=== PATIENT | male | born 1955 | race Caucasian/White ===

== ENCOUNTER 2017-09-11 15:52 | Emergency (ER) | payer OTHER ==
[2017-09-11 16:12] VITALS: BP 140/66; PULSE 71; RESP 16; TEMP 97.9; O2SAT 94
--- NOTE | 2017-09-11 16:23 | EDPHY ---
HPI/HX/ROS/PE/MDM Narrative: CHIEF COMPLAINT: Right rib injury HPI: The patient is a 61-year-old male who denies any significant past medical history. He is not on anticoagulants. Last night, the patient slipped on ice in his driveway, landing on his right chest wall. He denies head injury. He denies injury to his arms or legs. He complains of pain in the right lower costal margin, particularly with movement or palpation. He denies abdominal pain. He denies lightheadedness or syncope. REVIEW OF SYSTEMS: Aside from elements discussed in the HPI, a comprehensive 10-point review of systems was reviewed and is negative. PMH: None significant. SOCIAL HISTORY: . Denies alcohol or drug abuse. PHYSICAL EXAM: General:Patient is alert, in no acute distress. ENT:Eyes are normal to inspection. ENT inspection normal. Neck: Normal inspection. Full range of motion. Respiratory:No respiratory distress. Breath sounds normal bilaterally. No external signs of trauma but tenderness to palpation at the right lower costal margin is present. Cardiovascular: Regular rate and rhythm. Strong peripheral pulses. Normal cap refill. Abdomen:The abdomen is nontender to palpation. There are no peritoneal signs. There are normal bowel sounds. No tenderness to deep palpation of the right upper quadrant. Back: Normal to inspection. No tenderness to palpation. Skin: Normal color. No rash. Warm and dry. Extremities: Normal appearance. Full range of motion. Neuro: Oriented x3. Normal motor function. Normal sensory function. ED Course: Chest x-ray reveals single isolated rib fracture at site of pain with no evidence of pneumothorax. Patient will be sent home with pain medicine and that the spirometer as well as strict return precautions. The patient has no abdominal pain or tenderness to suggest hepatic injury. - Data Points Imaging: Discussed imaging studies w/ call center associate Radiologist, I viewed and interpreted images myself General Time Seen by Provider: 09/11/17 16:03 Initial Vital Signs: Initial Vital Signs Temperature (C) 36.6 C 09/11/17 16:01 Heart Rate 71 09/11/17 16:01 Respiratory Rate 16 09/11/17 16:01 Blood Pressure 140/66 H 09/11/17 16:01 O2 Sat (%) 94 09/11/17 16:01 O2 Delivery Mode Room Air Allergies/Adverse Reactions: No Known Allergies Allergy (Verified 09/11/17 16:04) Home Medications: Medication Instructions Recorded Lexapro 10 MG 09/11/17 oxyCODONE/APAP 5/325 [Percocet 1 - 2 tab PO Q6H PRN #20 tab 09/11/17 5/325 (*)] Departure - Departure Disposition: Home, Routine, Self-Care Clinical Impression: Rib fracture Condition: Good Instructions: Rib Fracture (ED) Additional Instructions: Followup with your primary doctor within 72 hours for reevaluation. Use incentive spirometer as directed several times daily. Return to the emergency department for fever, worsening pain, shortness of breath or difficulty breathing, abdominal pain, blood in urine or other concerns. Referrals: Liu Rowe MD [Primary Care Provider] - As per Instructions Prescriptions: oxyCODONE/APAP 5/325 [Percocet 5/325 (*)] 1 - 2 tab PO Q6H PRN #20 tab PRN Reason: Pain, Severe
== END 2017-09-11 16:53 | disposition home or self-care (01) ==
LOC: CED 15:52
DX: S22.31XA Fracture of one rib, right side, initial encounter for closed fracture (principal); W01.0XXA Fall on same level from slipping, tripping and stumbling without subsequent striking against object, initial encounter
CPT/HCPCS: 71101-PO

== ENCOUNTER 2018-02-23 12:34 | Day surgery (SDC) | payer OTHER ==
[2018-02-23] MEDS ORDERED: BENZOCAINE UNIT DOSE SPRAY HURRICAINE MM ONE (12:37)
[2018-02-23] MEDS ORDERED: fentaNYL 100 MCG/2 ML INJ IVP ONE (12:37)
[2018-02-23] MEDS ORDERED: diphenhydrAMINE 25 MG CAP PO ONE (12:37)
[2018-02-23] MEDS ORDERED: NS 1,000 ML IV ONE (12:37)
[2018-02-23] MEDS ORDERED: DIAZEPAM 5 MG TAB PO ONE (12:37)
[2018-02-23] MEDS ORDERED: MIDAZOLAM 2 MG/2 ML VIAL IVP ONE (12:37)
[2018-02-23] MEDS ORDERED: FAMOTIDINE 20 MG TAB PO ONE (12:37)
[2018-02-23] MEDS ORDERED: ASPIRIN EC 325 MG TAB PO ONE (12:37)
--- NOTE | 2018-02-23 12:57 | CPEKG ---
Heart Rate: 85 RR Interval: 706 P-R Interval: 156 QRSD Interval: 104 QT Interval: 340 QTC Interval: 405 P Dysart: 85 QRS Dysart: 78 T Wave Dysart: -66 EKG Severity - ABNORMAL ECG - EKG Impression: SINUS RHYTHM EKG Impression: VENTRICULAR BIGEMINY EKG Impression: NONSPECIFIC REPOL ABNORMALITY, DIFFUSE LEADS Electronically Signed By: Hayden Cazares 02-Mar-2018 16:20:55
[2018-02-23] MEDS ORDERED: MIDAZOLAM 2 MG/2 ML VIAL ONE (13:21)
[2018-02-23] MEDS ORDERED: fentaNYL 100 MCG/2 ML INJ ONE (13:21)
[2018-02-23] MEDS ORDERED: LIDOCAINE 1% 300 MG/30 ML SDV ONE (13:21)
[2018-02-23] MEDS ORDERED: IOPAMIDOL (ISOVUE-370) 150 ML BTL IV ONE (13:22)
[2018-02-23 13:29] LABS: PLATELET COUNT 174 10^3/uL (150-400)
[2018-02-23 13:37] LABS: INR 1.05 (0.83-1.16); PROTIME(PATIENT) 13.9 SEC (12.0-15.0)
[2018-02-23] MEDS ORDERED: ATROPINE SULFATE 1 MG/10 ML SYR ONE ×2 (13:58→16:14)
--- NOTE | 2018-02-23 14:22 | PDHPUP ---
History & Physical Update H&P update statement: This history and physical update is based on an assessment of the patient which was completed after admission or registration (within 24 hours), but prior to the surgery/procedure. H&P update: H&P reviewed & patient examined, no change in patient's condition since H&P completed
--- NOTE | 2018-02-23 14:22 | PDPROPOC ---
Sedation Plan of Care Sedation Plan of Care: vital signs stable, mental status noted, patient educated of risks, benefits, alternatives, patient can tolerate sedation ASA Classification: ASA 2 Planned drugs: fentanyl, midazolam Mallampati Score: Class 2 Mallampati Reference Image: Patient passed 3-3-2 rule?: Yes
[2018-02-23] MEDS ORDERED: ATROPINE SULFATE 1 MG/10 ML SYR IVP PRN (16:51)
[2018-02-23] MEDS ORDERED: ONDANSETRON 4 MG/2 ML VIAL IVP PRN (16:51)
[2018-02-23] MEDS ORDERED: OXYCODONE/APAP 5/325 TAB PO PRN (16:51)
[2018-02-23] MEDS ORDERED: HYDROCODONE/APAP 5/325 TAB PO PRN (16:51)
--- NOTE | 2018-02-23 17:01 | CPIP ---
[f rep st] INVASIVE CARDIAC PROCEDURE DATE OF PROCEDURE: 02/23/2018 PROCEDURE: 1. Coronary angiography. 2. Left ventriculography. 3. Right heart catheterization. INDICATION: 1. Sgrhqniu-wg-knslwi mitral regurgitation. 2. Exercise intolerance. ACCESS: Patient was prepped and draped in sterile fashion. 1% lidocaine was used to anesthetize the right inguinal region. A 6-Nepalese introducer sheath was placed selectively into the right common fe moral artery via modified Seldinger technique. A 7-Nepalese introducer sheath was placed selectively i n the right common femoral vein via modified Seldinger technique. CORONARY ANGIOGRAPHY: A 6-Nepalese JL4 was advanced to left main coronary artery and images obtained. The left main coronary artery trifurcated into an LAD, ramus, and circumflex coronary arteries. The left main coronary artery appeared normal. The left anterior descending coronary artery had mild florencia damian irregularities in the proximal segment. There was no stenosis greater than 10%. The left ante rior descending coronary artery gave rise to 4 small diagonal branches. The diagonal branches were f ree of any significant disease. The ramus coronary artery is a moderate-sized vessel. The ramus cor onary artery had a segmental 20% to 30% stenosis in the proximal segment. The circumflex coronary ar alexandra is a large vessel was codominant. Circumflex coronary artery appeared normal. A 6-Nepalese Willi ams right catheter was advanced to the right coronary artery and images obtained. The right coronary artery appeared normal. LEFT VENTRICULOGRAPHY: A 6-Nepalese pigtail catheter was advanced in the left ventricle and images obt ained. Left ventricle is normal in size, had normal systolic function. Estimated ejection fraction was 58%. The left ventricular end-diastolic pressure was approximately 12 mmHg. RIGHT HEART CATHETERIZATION: The right heart catheter was advanced in the right atrium and pressure and sat obtained. The right atrial pressure was 5 mmHg. The saturation was 78.1. Catheter was then advanced in the right ventricle and pressure and sat obtained. The right ventricular pressure was 2 8/8 mmHg and a sat of 78.1%. Catheter was then advanced in the pulmonary artery and pressure and sat obtained. The pulmonary artery pressure was 30/7 with a mean of 17 mmHg. The pulmonary artery satu ration was 78.3%. The SVC saturation was 76.4%. The IVC saturation was 78.7%. The femoral artery s aturation was 99.2%. Cardiac output was 5.55. Cardiac index 2.8. COMPLICATIONS: None. CONCLUSIONS: 1. Mild coronary artery disease without flow limitation. 2. Normal left ventricular size and systolic function. 3. No evidence of pulmonary hypertension. 4. Normal left ventricular end-diastolic pressure with no evidence of a V-wave. /[id number]/MODL
[2018-02-23 19:05] VITALS: BP 139/72
== END 2018-02-23 19:12 | disposition home or self-care (01) ==
LOC: FCATH 12:34
PROVIDERS: ATTEND Internal Medicine Cardiovascular Disease
PROC: 4A023N8 Measurement of Cardiac Sampling and Pressure, Bilateral, Percutaneous Approach (ICD-10-PCS; principal; 2018-02-23)
PROC: B2111ZZ Fluoroscopy of Multiple Coronary Arteries using Low Osmolar Contrast (ICD-10-PCS; principal; 2018-02-23)
PROC: B246ZZ4 Ultrasonography of Right and Left Heart, Transesophageal (ICD-10-PCS; principal; 2018-02-23)
PROC: B2151ZZ Fluoroscopy of Left Heart using Low Osmolar Contrast (ICD-10-PCS; principal; 2018-02-23)
DX: I34.0 Nonrheumatic mitral (valve) insufficiency (principal); I34.1 Nonrheumatic mitral (valve) prolapse; R94.31 Abnormal electrocardiogram [ECG] [EKG]; R68.89 Other general symptoms and signs; I25.10 Atherosclerotic heart disease of native coronary artery without angina pectoris; N40.0 Benign prostatic hyperplasia without lower urinary tract symptoms; I10 Essential (primary) hypertension; H93.19 Tinnitus, unspecified ear; F41.9 Anxiety disorder, unspecified
CPT/HCPCS: C1760; J0461; J1200; J1644; J2250; J3010; Q9967

== ENCOUNTER 2018-02-24 08:01 | Emergency (ER) | payer OTHER ==
--- NOTE | 2018-02-24 08:46 | EDPHY ---
HPI/HX/ROS/PE/MDM Narrative: CHIEF COMPLAINT: Pain and hematoma at groin incision after cath HISTORY OF PRESENT ILLNESS: The patient is a 62 y/o male 1 day post mitral valve regurgitation presurgery cardiac catheterization complaining of pain and hematoma at groin site and lightheadedness. He had some pain in the groin when he awoke this morning but denies any lightheadedness or dizziness. He went to the bathroom and tried not to bear down. After standing up from the toilet, his groin incision site was flat and normal. While in the shower, his groin incision site became raised and he began experiencing intense pain at the site. He then became lightheaded but denies syncope. Dr. Martinez, cardiology, met the patient in the ED on arrival and performed the initial evaluation and administered morphine. Shortly after receiving morphine, patient BP dropped to 60s systolic. Staff from the labor commissioner has been holding pressure at the site and placed him in Trendelenburg. No syncope. He denies numbness in the right leg or any other associated symptoms. No fever, chills, chest pain, shortness of breath, palpitations, vomiting, diarrhea, urinary complaints, headache. REVIEW OF SYSTEMS: Aside from elements discussed in the HPI, a comprehensive 10-point review of systems was reviewed and is negative. PAST MEDICAL HISTORY: Mitral valve regurgitation SOCIAL HISTORY: at bedside, lives in [facility] VITAL SIGNS: Reviewed by me. HR 60 BP at my evaluation 62 systolic. GENERAL: Well-developed, well-nourished, in no respiratory distress. Pale. Pleasant. Laying in trendelenburg. HEENT: Atraumatic. Eyes: No icterus, no injection. Mouth: moist mucous membranes. No erythema or lesions. Neck: supple with no adenopathy. LUNGS: Clear to auscultation bilaterally, no wheezes, rhonchi or rales. CARDIAC: Regular rate and rhythm, no rubs, murmurs or gallops. Good palpable pulse at femoral arteries bilaterally. Lemon-sized hematoma at right groin. ABDOMEN: Suprapubic tenderness. Soft, nondistended, bowel sounds normal. BACK: No CVA tenderness. EXTREMITIES: No trauma. No edema. Range of motion is normal throughout. NEURO: Alert and oriented, grossly nonfocal. SKIN: Warm and dry, no rash. PSYCHIATRIC: Normal mentation, no agitation. ED Course: I performed a FAST exam due to concerns regarding significant hypotension. FAST ULTRASOUND Procedure: FAST ultrasound. Limited abdominal ultrasound for intraabdominal hemorrhage. 1) The right upper quadrant was visualized and was found to be negative for intraperitoneal fluid. 2) The left upper quadrant was visualized and found to be negative for intraperitoneal fluid. Limited pelvic ultrasound was conducted for intraabdominal hemorrhage. The bladder was visualized and did not reveal an anechoic area outside of the adjacent urinary bladder. Bladder was distended with urine. The study was felt to be negative for free intraperitoneal fluid The procedure was performed by myself, Dr. Whitaker. The patient presents with pain and bleeding from his catheterization laboratory groin incision site. He was in the shower this morning when the incision became raised and his pain increased. He has a hematoma the size of a lemon. He reports lightheadedness but denies syncope. Dr. Martinez met him on arrival and performed initial evaluation. He administered morphine and advised a staff member from the labor commissioner to apply pressure at the site. After receiving morphine , his blood pressure dropped into the the 60s systolic, at which point I arrived for my evaluation. On exam, he had suprapubic tenderness. I performed a FAST to check for intraabdominal bleeding. FAST was negative. Plan for cath staff to continue applying pressure, iSTAT, and ultrasound to evaluate possible pseudoaneurysm. Study: US of the groin Indication: Large hematoma post catheterization Results: US scan of the body parts was obtained. The results of the study are negative for pseudoaneurysm. The study was read by the radiologist, Dr. Longoria. Multiple reexamination by myself over the time frame from arrival to 1:00pm. Patient improving after fluids and continues to feel well at time of discharge. 10:30 AM - Ultrasounds and labs are unremarkable. He will continue to be observed and Michelle will consult and reevaluate. 12:00 PM - Dr. Martinez recommends additional fluid, observation, and orthostatics prior to discharge. 1:10 PM - He is safe to be discharged. He agrees to this course of action. Follow-up instructions and return precautions given. MDM: Diff dx considered included but not limited to expanding arterial hematoma, hemorrhagic shock, vasovagal event, pseudoaneurysm, local hematoma, arrhythmia. - Data Points Imaging Results: Impression: No evidence of a pseudoaneurysm or hematoma. Dictated By: Lauren Longoria MD Medications Given: Discontinued Medications Sodium Chloride (Ns) 1,000 mls @ 0 mls/hr IV ONCE ONE PRN Reason: Wide Open Stop: 02/24/18 09:21 Last Admin: 02/24/18 09:22 Dose: 1,000 mls Sodium Chloride (Ns) 500 mls @ 1,000 mls/hr IV EDNOW ONE PRN Reason: Protocol Stop: 02/24/18 11:28 Last Admin: 02/24/18 11:05 Dose: 500 mls Sodium Chloride (Ns) 500 mls @ 1,000 mls/hr IV EDNOW ONE PRN Reason: Protocol Stop: 02/24/18 13:08 Last Admin: 02/24/18 12:49 Dose: 500 mls Morphine Sulfate (Morphine) 2 mg IVP EDNOW ONE Stop: 02/24/18 08:26 Last Admin: 02/24/18 08:35 Dose: 2 mg Morphine Sulfate (Morphine) 4 mg IVP EDNOW ONE Stop: 02/24/18 08:27 Last Admin: 02/24/18 13:04 Dose: Not Given Point of Care Test Results: Chemistry 02/24/18 08:42 POC Sodium 140 mEq/L mEq/L (135-145) POC Potassium 4.0 mEq/L mEq/L (3.3-5.0) POC Chloride 101 mEq/L mEq/L (97-110) POC BUN 15 mg/dL mg/dL (7-23) POC Creatinine 1.2 mg/dL mg/dL (0.7-1.3) POC Glucose 86 mg/dL mg/dL (70-100) ISTAT H&H 02/24/18 08:42 POC Hgb 13.9 gm/dL gm/dL (13.7-17.5) POC Hct 41 % % (40-51) General Time Seen by Provider: 02/24/18 08:25 Initial Vital Signs: Initial Vital Signs Temperature (C) 36.5 C 02/24/18 08:03 Heart Rate 69 02/24/18 08:03 Respiratory Rate 16 02/24/18 08:03 Blood Pressure 128/74 H 02/24/18 08:03 O2 Sat (%) 96 02/24/18 08:03 O2 Delivery Mode Room Air Allergies/Adverse Reactions: No Known Allergies Allergy (Verified 09/11/17 16:04) Home Medications: Medication Instructions Recorded Escitalopram Oxalate [Lexapro] 10 mg PO DAILY 09/11/17 Multivitamins [Multivitamin (*)] 1 each PO DAILY 02/17/18 Sildenafil Citrate [Revatio 20 MG 20 mg PO DAILY PRN 02/17/18 (*)] Aspirin 02/24/18 Departure - Departure Disposition: Home, Routine, Self-Care Clinical Impression: Hematoma, Right groin hematoma, Status post cardiac catheterization Condition: Good Instructions: Hematoma (ED) Additional Instructions: 1. Follow up with Dr. Martinez as planned. 2. Return for increased swelling, recurring bleeding, increased pain, or any other worsening of condition. Referrals: NONE *PRIMARY CARE P,. [Primary Care Provider] - As per Instructions Jay Martinez MD [Medical Doctor] - As per Instructions Report Scribed for: Sera Whitaker Report Scribed by: Tayler Dinero Date of Report: 02/24/18 Time of Report: 10:21 Physician Review and Approval Statement: Portions of this note were transcribed by a medical illustrator. I personally performed a history, physical exam, medical decision making, and confirmed accuracy of information the transcribed note.
[2018-02-24] MEDS ORDERED: NS 1,000 ML IV ONE (09:20)
[2018-02-24] MEDS ORDERED: NS 500 ML IV ONE (10:59)
--- NOTE | 2018-02-24 12:26 | PDCONSULT ---
Dining Room Supervisor Note: Alfonso Ibarra is a 62-year-old male who I was asked to consult on for hematoma of right groin sight after cath procedure on 02/23/18. I brought the patient back to laborer tin can yesterday after complaints of decreased exercise tolerance. Echo showed questionable moderate to severe mitral regurgitation. 1. Hematoma: s/p right and left heart cath on 02/23/18. Pressure was held. No pseudoaneurysm seen on US. Will have patient monitored for 1 hour in ED. Discussed with patient and his for the option to stay overnight for monitoring or be discharged home. They decided to go home. I discussed the importance of no heavy lifting, pushing, or pulling or strenuous exercise for the next week. 2. Moderate to severe mitral regurgitation secondary to mitral valve prolapse. Patient is having decreased exercise tolerance which has been declining over the past year. This problem may be contributing to his symptoms. R/L heart cath showed the following: -normal Lv size -normal pulmonary pressures -left atrial enlargement -no drop in EF -moderate to severe mitral regurgitation Patient will see Dr. Bernardo to discuss surgery. He will follow-up with me in the office afterwards for re-evaluation. 3. Palpitations- frequent PVC's seen on telemetry. No afib seen. Patient has event monitor ordered for further evaluation. Subjective: No complaints. Would like to go home. Objective: laying in bed, groin site is clean, dry, and intact.
[2018-02-24] MEDS: NS 500 ML IV ONE ×2 (12:48→12:49)
[2018-02-24 13:28] VITALS: BP 119/80
== END 2018-02-24 13:27 | disposition home or self-care (01) ==
DX: I97.610 Postprocedural hemorrhage of a circulatory system organ or structure following a cardiac catheterization (principal); E86.9 Volume depletion, unspecified
CPT/HCPCS: 82435-PO; 82565-PO; 82947-PO; 84132-PO; 84295-PO; 84520-PO; 85014-PO; 96374; J2270

== ENCOUNTER → 2018-04-25 | Outpatient (CLI) | payer OTHER ==
[~2018-04-25] MED LIST: ADENOSINE 6 MG/2 ML VIAL ONE; ALBUMIN 5% 250 ML BOTTLE IV ONE; AMIODARONE HCL 150 MG/3 ML VIAL ONE; CALCIUM CHLORIDE 1 GM/10 ML INJ ONE; CITRATE DEXTROSE SOLN 500 ML BAG ONE; DOPamine/DEXTROSE 400 MG/250 ML BAG IV ONE; HEPARIN 10,000 UNIT/10 ML MDV (1,000 UNIT/ML) ONE; LIDOCAINE 2% 100 MG/5 ML SYR ONE; MAGNESIUM SULFATE 1 GM/2 ML VIAL ONE; MIDAZOLAM 2 MG/2 ML VIAL ONE; MILRINONE/DEXTROSE/100 ML BAG IV ONE; NA BICARBONATE 50 MEQ/50 ML VIAL ONE; NITROGLYCERIN/D5W 50 MG/250 ML BOTTLE IV ONE; PROTAMINE SULFATE 50 MG/5 ML VIAL IVP ONE; ceFAZolin 1 GM VIAL ONE; methylPREDNISolone SOD SUCC 1 GM/8 ML VIAL ONE; niCARdipine/NACL/200 ML BAG IV ONE
== END ==
LOC: FIMAGING 10:58
PROVIDERS: ATTEND Thoracic Surgery (Cardiothoracic Vascular Surgery)
DX: I34.0 Nonrheumatic mitral (valve) insufficiency (principal)
CPT/HCPCS: J0153; J0282; J0690; J1265; J1644; J2001; J2250; J2260; J2720; J2930; J3475; J7060; P9041

== ENCOUNTER 2018-04-26 07:07 | Inpatient (IN) | payer OTHER ==
[~2018-04-26 07:07] MED LIST changes: -ADENOSINE 6 MG/2 ML VIAL ONE; -CITRATE DEXTROSE SOLN 500 ML BAG ONE; -DOPamine/DEXTROSE 400 MG/250 ML BAG IV ONE; -MIDAZOLAM 2 MG/2 ML VIAL ONE; -MILRINONE/DEXTROSE/100 ML BAG IV ONE; -ceFAZolin 1 GM VIAL ONE; -methylPREDNISolone SOD SUCC 1 GM/8 ML VIAL ONE; -niCARdipine/NACL/200 ML BAG IV ONE
[2018-04-26] MEDS ORDERED: MANNITOL 25% 12.5 GM/50 ML VIAL IVP ONE (07:09)
[2018-04-26] MEDS ORDERED: NOREPINEPHRINE BITARTRATE 16 MG in NS 250 ML IV ONE (07:09)
[2018-04-26] MEDS ORDERED: AMINOCAPROIC ACID 5 GM/20 ML VIAL IV ONE (07:09)
[2018-04-26] MEDS ORDERED: PHENYLEPHRINE HCL 50 MG in NS 250 ML IV ONE (07:09)
[2018-04-26] MEDS ORDERED: SODIUM BICARBONATE 20 MEQ, LIDOCAINE 1% 10 ML in NORMOSOL-R 1,000 ML MISC ONE ×2 (07:09→08:30)
[2018-04-26] MEDS ORDERED: INSULIN REGULAR HUMAN 100 UNIT in NS 100 ML IV ONE (07:09)
[2018-04-26] MEDS ORDERED: niCARdipine/NACL 200 ML IV ONE (07:13)
[2018-04-26] MEDS ORDERED: ceFAZolin 2 GM/DEXTROSE 100 ML IV ONE (07:13)
[2018-04-26] MEDS ORDERED: CITRATE DEXTROSE SOLN 500 ML BAG MISC ONE (07:13)
[2018-04-26] MEDS ORDERED: MUPIROCIN 2% 22 GM OINT NS ONE (07:13)
[2018-04-26] MEDS ORDERED: LR 1,000 ML IV ONE (07:15)
[2018-04-26] MEDS ORDERED: LIDOCAINE 1% 2 ML INJ ID PRN (07:15)
--- NOTE | 2018-04-26 08:13 | PDGENHP ---
History and Physical - Chief Complaint severe MR, frequent PVCs, CAD - History of Present Illness 62M evaluated this past February for severe symptomatic MR and bothersome PVCs here today for elective MV repair/replace and pulmonary vein ablation. Pt continue to c/o a progressive decline in his exertional abilities as well as worsening palpations. He denies syncope, weakness, SOB, orthopnea, PND, CP, abdominal pain , urinary problems, or LE edema. History Information - Allergies/Home Medication List Allergies/Adverse Reactions: No Known Allergies Allergy (Verified 03/27/18 11:44) Home Medications: Escitalopram Oxalate [Lexapro] 09/11/17 [Last Taken 04/25/18] Multivitamins [Multivitamin (*)] 02/17/18 [Last Taken 04/25/18] Aspirin 02/24/18 [Last Taken 04/25/18] I have personally reviewed and updated: medical history, social history, surgical history - Past Medical History coronary artery disease Additional medical history: MR, PVCs - Surgical History Reports: hernia repair - Family History Positive for: non-pertinent - Social History Smoking Status: Never smoked Alcohol Use: Rarely Drug Use: None Review of Systems Review of Systems: ROS: 10pt was reviewed & negative except for what was stated in HPI & below Physical Exam Physical Exam: Temp Pulse Resp BP Pulse Ox 36.4 C 70 15 127/77 H 95 04/26/18 07:21 04/26/18 07:21 04/26/18 07:21 04/26/18 07:21 04/26/18 07:21 Constitutional: no apparent distress, appears nourished, not in pain Eyes: anicteric sclera Ears, Nose, Mouth, Throat: moist mucous membranes, hearing normal Cardiovascular: regular rate and rhythym, systolic murmur Respiratory: no respiratory distress, clear to auscultation Gastrointestinal: soft, non-tender abdomen Skin: warm, normal color Neurologic: AAOx3 Psychiatric: interacting appropriately, not anxious, not encephalopathic, thought process linear Lab Data & Imaging Review Patient ABO/Rh A POSITIVE 04/25/18 10:59 Antibody Screen NEGATIVE 04/25/18 10:59 Reviewed in [employer] Imaging Review: TTE, L/RHC reviewed in [employer] Visualized and Interpreted Chest x-ray results: Yes Chest X-Ray results: normal EKG Interpretation: Positive for: normal sinsus rhythm EKG additional interpertation: PVCs Assessment & Plan Assessment: Severe MR, PVCs, CAD - MV repair/replac - PVI ablation, LLAA - CABGx1
[2018-04-26] MEDS ORDERED: PAPAVERINE HCL 60 MG/2 ML SDV ONE (08:19)
[2018-04-26] MEDS ORDERED: VERAPAMIL 5 MG/2 ML VIAL ONE (08:19)
[2018-04-26] MEDS ORDERED: PAPAVERINE HCL 60 MG in NS 100 ML IV ONE (08:30)
[2018-04-26] MEDS ORDERED: VERAPAMIL 5 MG, NITROGLYCERIN 2.5 MG, HEPARIN 500 UNIT, SODIUM BICARBONATE 0.2 MEQ in L... MISC ONE ×2 (08:30→08:32)
[2018-04-26] MEDS ORDERED: MIDAZOLAM 2 MG/2 ML VIAL IVP ONE (08:36)
--- NOTE | 2018-04-26 08:37 | PDANEPAE ---
ANE History of Present Illness here for mvr/cabg ANE Past Medical History - Cardiovascular History Hx Hypertension: No Hx Arrhythmias: No Hx Chest Pain: No Hx Coronary Artery / Peripheral Vascular Disease: No Hx CHF / Valvular Disease: Yes Hx Palpitations: No Cardiovascular History Comment: MITRAL VALVE REGURG - Pulmonary History Hx COPD: No Hx Asthma/Reactive Airway Disease: No Hx Recent Upper Respiratory Infection: No Hx Oxygen in Use at Home: No Hx Sleep Apnea: No Sleep Apnea Screening Result - Last Documented: Negative - Neurologic History Hx Cerebrovascular Accident: No Hx Seizures: No Hx Dementia: No - Endocrine History Hx Diabetes: No - Renal History Hx Renal Disorders: No - Liver History Hx Hepatic Disorders: No - Neurological & Psychiatric Hx Hx Neurological and Psychiatric Disorders: Yes Neurological / Psychiatric History Comment: DEPRESSION AND ANXIETY - Cancer History Hx Cancer: No - Congenital Disorder History Hx Congenital Disorders: No - GI History Hx Gastrointestinal Disorders: No - Other Health History Other Health History: NONE - Chronic Pain History Chronic Pain: No - Surgical History Prior Surgeries: NONE IN LAST 5 YRS ANE Review of Systems Review of systems is: negative Review of Systems: - Exercise capacity Exercise capacity: >=4 METS METS (RN): 4 METS ANE Patient History - Allergies Allergies/Adverse Reactions: No Known Allergies Allergy (Verified 03/27/18 11:44) - Home Medications Home medications: home medication list seen and reviewed Home Medications: Escitalopram Oxalate [Lexapro] 09/11/17 [Last Taken 04/25/18] Multivitamins [Multivitamin (*)] 02/17/18 [Last Taken 04/25/18] Aspirin 02/24/18 [Last Taken 04/25/18] - NPO status NPO Status: no food or drink >8 hours NPO Since - Liquids (Date): 04/25/18 NPO Since - Liquids (Time): 21:00 NPO Since - Solids (Date): 04/25/18 NPO Since - Solids (Time): 17:00 - Anes Hx Anes Hx: no prior problems - Smoking Hx Smoking Status: Never smoked - Alcohol Use Alcohol Use: Rarely - Family Anes Hx Family Hx Anesthesia Complications: NONE ANE Labs/Vital Signs - Vital Signs Vital Signs: reviewed preoperatively; see RN documention for details Blood Pressure: 127/77 Heart Rate: 70 Respiratory Rate: 15 O2 Sat (%): 95 Height: 185.42 cm Weight: 72.575 kg ANE Physical Exam - Airway Neck exam: FROM Mallampati Score: Class 1 - Pulmonary Pulmonary: no respiratory distress - Cardiovascular Cardiovascular: regular rate and rhythym - ASA Status ASA Status: III ANE Anesthesia Plan Anesthesia Plan: general endotracheal anesthesia Lines/Monitors: arterial line, central line, NESS
[2018-04-26] MEDS ORDERED: PROPOFOL/EMULSION 500 MG/50 ML BOTTLE IV ONE (08:41)
[2018-04-26] MEDS ORDERED: PHENYLEPHRINE HCL 100 MCG/ML SYR ONE (08:42)
[2018-04-26] MEDS ORDERED: fentaNYL 250 MCG/5 ML INJ ONE (08:46)
[2018-04-26] MEDS ORDERED: KETAMINE 200 MG/20 ML VIAL ONE (08:47)
[2018-04-26] MEDS ORDERED: HYDROmorphONE/DILAUDID 2 MG/ML INJ ONE (11:30)
[2018-04-26] MEDS ORDERED: ALBUMIN 5% 250 ML BOTTLE IV ONE (11:47)
[2018-04-26] MEDS ORDERED: ACETAMINOPHEN 325 MG TAB PO PRN (12:02)
[2018-04-26] MEDS ORDERED: ONDANSETRON DISINTEGRATING 4 MG TAB PO PRN (12:02)
[2018-04-26] MEDS ORDERED: POTASSIUM Cl (KCl) 50 ML IV PRN (12:02)
[2018-04-26] MEDS ORDERED: BISACODYL 10 MG SUPP PR PRN (12:02)
[2018-04-26] MEDS ORDERED: ONDANSETRON 4 MG/2 ML VIAL IVP PRN (12:02)
[2018-04-26] MEDS ORDERED: METOCLOPRAMIDE 10 MG/2 ML VIAL IVP PRN (12:02)
[2018-04-26] MEDS ORDERED: PANTOPRAZOLE SODIUM 40 MG VIAL IVP ONE ×2 (12:02→14:45)
[2018-04-26] MEDS ORDERED: POLYETHYLENE GLYCOL 3350 17 GM PKT PO PRN (12:02)
[2018-04-26] MEDS ORDERED: MAGNESIUM HYDROXIDE 30 ML UDCUP PO PRN (12:02)
[2018-04-26] MEDS ORDERED: CEPACOL LOZENGE PO PRN (12:02)
[2018-04-26] MEDS ORDERED: D50W 25 GM/50 ML SYR IVP PRN (12:02)
[2018-04-26] MEDS ORDERED: fentaNYL 100 MCG/2 ML INJ IVP PRN (12:02)
[2018-04-26] MEDS ORDERED: MEPERIDINE 25 MG/0.5 ML AMP IVP PRN (12:02)
[2018-04-26] MEDS ORDERED: LACTULOSE 20 GM/30 ML UDCUP PO PRN (12:02)
[2018-04-26] MEDS ORDERED: SODIUM CL NASAL 45 ML BTL EACHNARE PRN (12:02)
[2018-04-26] MEDS ORDERED: ACETAMINOPHEN 650 MG SUPP PR PRN (12:02)
[2018-04-26] MEDS ORDERED: NS 1,000 ML IV SCH (12:15)
[2018-04-26] MEDS ORDERED: INSULIN REGULAR HUMAN 100 UNIT in NS 100 ML IV SCH (12:30)
[2018-04-26] MEDS ORDERED: niCARdipine/NACL 200 ML IV SCH (12:30)
--- NOTE | 2018-04-26 12:42 | PDMN ---
Medical Necessity Medical necessity: [facility] [place] S290 Cardiac Valve Replacement or Repair, IP only, CPT 59420, 62 y.o s/p mitral valve repair
--- NOTE | 2018-04-26 12:43 | POSTANESTH ---
Post Anesthetic Evaluation Cardiovascular Status: Normal, Stable Respiratory Status: Normal, Stable Level of Consciousness/Mental Status: Mildly Sleepy, Arousable Pain Control: Adequate, Prn Tx Ordered Nausea/Vomiting Control: Adequate, Prn Tx Ordered Complications Possibly Related to Anesthesia: None Noted
--- NOTE | 2018-04-26 12:54 | GOP ---
DATE OF OPERATION: 04/26/2018 SURGEON: Hayden Bernardo DO QUALITY ENGINEER: Ramos Nava. ANESTHESIA: Luca Jackson MD. 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 POSTOPERATIVE DIAGNOSIS: With evidence of easily inducible atrial fibrillation intraoperatively. PROCEDURE PERFORMED: 1. Mitral valve repair with #38 Physio annuloplasty ring. 2. Pulmonary vein ablation. 3. Ligate left atrial appendage. FINDINGS: Patient presented with mild decrease in exercise capacity. He was found to have severe mu lti jet mitral insufficiency with obvious Cabrera's valve. He had left atrial and left ventricular ch ann enlargement with increase in systolic dimensions. His catheterization showed mild disease with nothing obstructive. There was concern about a ramus branch, but at cath conference, they felt that was not significantly obstructive and therefore was not bypassed. We were unable to document atrial fibrillation preoperatively, although he had frequent PACs and some ventricular arrhythmias. He was consented for surgery. DESCRIPTION OF PROCEDURE: He was brought to the operating room, intubated, and monitoring lines were placed. He was prepped and draped in sterile classical manner. Intraoperative transesophageal echo mirrored the preoperative findings. Sternotomy was performed. He was heparinized, cannulated. Byp ass was begun. Initially upon opening the pericardium he went into rapid atrial fibrillation, which was poorly tolerated. He spontaneously cardioverted. Because of this, I decided to do a pulmonary v ein ablation with his left atrial enlargement and long-standing mitral insufficiency with secondary s tructural changes to his left ventricle and left atrium. Despite not having proven atrial fibrillati on preoperatively, I felt that this would potentially lessen his long-term risk and perioperative ris k. Bypass was begun. Bilateral pulmonary vein ablation was performed with the heart beating and emp ty. Multiple lesion sets with 3 overlapping lesion sets with the final of each ablation being less t chan 5 seconds were performed. No testing was performed. We then arrested the heart. We then evalua glendy the left atrial appendage, which was free of thrombus on echo. A 50 mm AtriClip was placed acros s the base. The tip of the appendage was excised in order to allow it to drain into the pericardium, and make sure that was completely occlusive. We then exposed the mitral valve in the standard fashi on through the right superior pulmonary vein. The left atrium was markedly enlarged. The valve was classically myxomatous with a Cabrera's appearance. With distention of the ventricle, he had multiple jets leaking and evidence of bileaflet prolapse. There were no ruptured chordae. There was some th ickening of the valve. I placed annuloplasty suture rings, and decided to begin with an annuloplasty ring appropriately sized to size 38, and if necessary, I would do chordal reconstruction to both ant erior and posterior leaflets, utilizing the loop technique. After placing the ring and distending th e ventricle, I did a methylene blue test, painting the anterior leaflets and checking for area of coa ptation, which was greater than a centimeter, both on the anterior and posterior leaflet. There was no regurgitation, and for that reason, I felt he would have an excellent long-term stable repair, and would not require chordal reconstruction. The ring was sutured in place with Cor-Knots. Left atriu m was closed in the standard fashion. The patient was de-aired. He had CO2 infused throughout the p rocedure. His cross-clamp was removed with suction on the ascending aortic vent in Trendelenburg wit h intermittent aspiration through the LV apex. Further air was identified with increasing ventilatio n and ejection. He was then weaned in Trendelenburg from bypass. Evaluation of the mitral valve rev ealed no regurgitation, excellent coaptation, and no DELANEY. Ventricular function appeared to be consis tent with preoperatively, which was some significant LV and systolic dimensions and mildly global hyp okinetic, but still a relatively well-preserved LV. The heparin was reversed with protamine. The ca nnula was removed and oversewn. Two ventricular pacing wires, 2 mediastinal drains were placed. The thymic fat and pericardium were closed. The patient is returned to ICU in stable condition, extubat ed. /[id number]/MODL
[2018-04-26] MEDS ORDERED: NOREPINEPHRINE BITARTRATE 16 MG in NS 250 ML IV SCH (14:15)
[2018-04-26] MEDS ORDERED: SODIUM BICARBONATE 50 MEQ/50 ML SYR ONE (14:23)
[2018-04-26] MEDS ORDERED: SODIUM BICARBONATE 50 MEQ/50 ML SYR IV ONE (14:30)
[2018-04-26] MEDS: KETOROLAC 15 MG/1 ML SDV IVP SCH ×3 (14:43→23:02)
[2018-04-26] MEDS: ALBUMIN 5% 250 ML IV PRN ×2 (15:17→16:06)
[2018-04-26] MEDS: ceFAZolin 2 GM/DEXTROSE 100 ML IV SCH (16:41)
[2018-04-26] MEDS ORDERED: NS 500 ML IV ONE (17:30)
[2018-04-26] MEDS: MUPIROCIN 2% 22 GM OINT NS SCH (21:30)
[2018-04-26] MEDS: SENNOSIDES/DOCUSATE SODIUM TAB PO SCH (21:36)
[2018-04-27] MEDS: ceFAZolin 2 GM/DEXTROSE 100 ML IV SCH ×3 (00:01→17:24)
[2018-04-27 04:24] LABS: PLATELET COUNT 116 10^3/uL (150-400)
[2018-04-27 04:29] LABS: INR 1.21 (0.83-1.16); PROTIME(PATIENT) 15.5 SEC (12.0-15.0)
[2018-04-27] MEDS: KETOROLAC 15 MG/1 ML SDV IVP SCH ×3 (05:57→17:53)
[2018-04-27] MEDS: HEPARIN 5,000 UNIT/0.5 ML INJ SC SCH ×3 (05:58→20:50)
--- NOTE | 2018-04-27 07:15 | SOAPPROG ---
SOAP Progress Note Assessment/Plan: POD #1: MV repair with #38 Physio annuloplasty ring, bilateral pulmonary vein ablation, AtriClip left atrial appendage Severe symptomatic MR s/p MV repair with annuloplasty ring - Wean Levophed for MAPs 65 - AL out once Levo off, DC FC, CTs to bulb suction - Coumadin for annuloplasty thromboprophylaxis, INR goal 2-3, duration 3 months - Secondary prevention with beta-charmaine as tolerated PVCs, left atrial dilation s/p PV ablation with exclusion of LUNA - Beta-charmaine for AF prophylaxis as tolerated Non-obstructive CAD - Ramus bypass deferred - Future mgmt as per cardiology Acute blood loss anemia - Stable without the need for blood product transfusions DVT prophylaxis - Heparin SQ until therapeutic on Coumadin/SCDs Subjective: Rough night as couldn't sleep. Pain well-managed. Denies SOB. Objective: Vital Signs Temp Pulse Resp BP Pulse Ox 36.9 C 77 20 107/54 L 99 04/27/18 04:00 04/27/18 07:00 04/27/18 07:00 04/27/18 07:00 04/27/18 07:00 Laboratory Results 04/27/18 04:00 04/27/18 04:00 04/26/18 04/27/18 04/28/18 05:59 05:59 05:59 Intake Total 2243.0 Output Total 1332 Balance 911.0 PT 15.5 SEC (12.0-15.0) H 04/27/18 04:00 INR 1.21 (0.83-1.16) H 04/27/18 04:00 Physical Exam - Physical Exam General Appearance: WD/WN, alert, no apparent distress EENT: No scleral icterus (R), No scleral icterus (L) Neck: normal inspection Cardiac/Chest: regular rate, rhythm Abdomen: non-tender, soft, No distended Skin: normal color, warm/dry Extremities: No pedal edema Neuro/Psych: no motor/sensory deficits, alert, normal mood/affect, oriented x 3 ICD10 Worksheet Patient Problems: Problems Problem Status Onset Acute blood loss anemia Acute Frequent PVCs Acute Mitral regurgitation Acute S/P mitral valve repair Acute Status post circumferential ablation of pulmonary vein Acute
[2018-04-27] MEDS: ASPIRIN 81 MG CHEWABLE TAB PO SCH (08:46)
[2018-04-27] MEDS: PANTOPRAZOLE SODIUM 40 MG TAB PO SCH (08:46)
[2018-04-27] MEDS: MUPIROCIN 2% 22 GM OINT NS SCH ×2 (08:46→21:55)
[2018-04-27] MEDS: SENNOSIDES/DOCUSATE SODIUM TAB PO SCH ×2 (08:46→20:50)
[2018-04-27] MEDS: ESCITALOPRAM OXALATE 10 MG TAB PO SCH (09:08)
[2018-04-27] MEDS: HYDROCODONE/APAP 5/325 TAB PO PRN ×3 (11:01→21:55)
--- NOTE | 2018-04-27 11:34 | ASMTCMCOM ---
CM Note CM Note Notes: Chart reviewed. 62 year old male s/p MV repair. Likely will dc with outpatient cardiac rehab. CM to follow. Plan: TBD Date Signed: 04/27/2018 11:34 AM Electronically Signed By:Payton Betancur RN
[2018-04-27] MEDS ORDERED: WARFARIN SODIUM 5 MG TAB PO ONE (16:00)
[2018-04-27] MEDS: traMADol 50 MG TAB PO PRN ×2 (16:31→20:50)
[2018-04-27] MEDS ORDERED: NS 500 ML IV ONE (22:21)
[2018-04-28] MEDS: KETOROLAC 15 MG/1 ML SDV IVP SCH ×2 (00:53→05:52)
[2018-04-28] MEDS: ceFAZolin 2 GM/DEXTROSE 100 ML IV SCH (00:53)
[2018-04-28] MEDS: NS 1,000 ML IV SCH ×3 (00:53→17:45)
[2018-04-28] MEDS: HYDROCODONE/APAP 5/325 TAB PO PRN ×2 (02:06→21:23)
[2018-04-28] MEDS: traMADol 50 MG TAB PO PRN (06:06)
[2018-04-28] MEDS: HEPARIN 5,000 UNIT/0.5 ML INJ SC SCH (06:06)
--- NOTE | 2018-04-28 06:11 | SOAPPROG ---
[facility]CR[facility] Progress Note Assessment/Plan: POD #2: MV repair with #38 Physio annuloplasty ring, bilateral pulmonary vein ablation, AtriClip left atrial appendage Severe symptomatic MR s/p MV repair with annuloplasty ring - CTs to bulb suction - leave for another day - Coumadin for annuloplasty thromboprophylaxis, INR goal 2-3, duration 3 months (no Coumadin today as INR jumped) - Secondary prevention with beta-charmaine as tolerated PVCs, left atrial dilation s/p PV ablation with exclusion of LUNA - Beta-charmaine for AF prophylaxis as tolerated Non-obstructive CAD - Ramus bypass deferred - Future mgmt as per cardiology Acute blood loss anemia, thrombocytopenia - Stable without the need for blood product transfusions - Monitor platelets DVT prophylaxis - Coumadin/SCDs Subjective: Feeling beter today. Pain well-controlled. Denies SOB. Objective: Vital Signs Temp Pulse Resp BP Pulse Ox 36.6 C 74 16 90/57 L 93 04/28/18 04:00 04/28/18 04:00 04/28/18 04:00 04/28/18 04:00 04/28/18 04:00 Laboratory Results 04/27/18 04:00 04/27/18 16:35 04/27/18 04/28/18 04/29/18 05:59 05:59 05:59 Intake Total 2243.0 1950 Output Total 1332 688 Balance 911.0 1262 PT 15.5 SEC (12.0-15.0) H 04/27/18 04:00 INR 1.21 (0.83-1.16) H 04/27/18 04:00 Physical Exam - Physical Exam General Appearance: WD/WN, alert, no apparent distress EENT: No scleral icterus (R), No scleral icterus (L) Neck: normal inspection Respiratory: No respiratory distress Cardiac/Chest: regular rate, rhythm Abdomen: non-tender, soft, No distended Skin: normal color, warm/dry Extremities: No pedal edema Neuro/Psych: no motor/sensory deficits, alert, normal mood/affect, oriented x 3 ICD10 Worksheet Patient Problems: Problems Problem Status Onset Acute blood loss anemia Acute Frequent PVCs Acute Mitral regurgitation Acute S/P mitral valve repair Acute Status post circumferential ablation of pulmonary vein Acute
[2018-04-28 06:33] LABS: INR 1.8 (0.83-1.16)
--- NOTE | 2018-04-28 06:54 | CPEKG ---
Test Reason : OPEN Blood Pressure : / mmHG Vent. Rate : 080 BPM Atrial Rate : 080 BPM P-R Int : 153 ms QRS Dur : 111 ms QT Int : 406 ms P-R-T Axes : 101 040 046 degrees QTc Int : 469 ms Sinus rhythm Low voltage, extremity leads Confirmed by Molina Barfield ([id number]) on 04/28/2018 6:53:34 AM Referred By: Confirmed By:Molina Barfield
[2018-04-28] MEDS: MUPIROCIN 2% 22 GM OINT NS SCH (07:05)
[2018-04-28] MEDS ORDERED: ALBUMIN 5% 250 ML IV ONE (07:41)
[2018-04-28] MEDS: ESCITALOPRAM OXALATE 10 MG TAB PO SCH (08:23)
[2018-04-28] MEDS: SENNOSIDES/DOCUSATE SODIUM TAB PO SCH ×2 (08:23→21:23)
[2018-04-28] MEDS: ASPIRIN 81 MG CHEWABLE TAB PO SCH (08:24)
[2018-04-28] MEDS: PANTOPRAZOLE SODIUM 40 MG TAB PO SCH (08:24)
--- NOTE | 2018-04-28 13:17 | ECHO ---
[email or web address] [address] [address] Main: [phone] Fax: Transthoracic Echocardiogram Name: SENIA MCPHERSON MR#: [id number] Study Date: 04/28/2018 Study Time: 08:45 AM Date of : 1955 Age: 62 year(s) Height: 185.4 cm (73 in.) Weight: 77.11 kg (170 lb.) BSA: 2.01 m2 Gender: Male Examination: Echo Indication: s/p #38 physio MV ring; low BP; r/o per effusion Image Quality: Adequate Contrast: Requested by: Ramos Nava BP: 90 mmHg/65 mmHg Heart Rate: Rhythm: Indication: s/p #38 physio MV ring; low BP; r/o per effusion Procedure Staff Pool Technician: Gay Bauman [facility] Reading Physician: Rufino Benavidez MD Requesting Provider: Conclusions: No pericardial effusion. Ejection fraction is 62% with paradoxical septal motion. Mitral valve anuloplasty ring. Trivial mitral regurgitation with mean gradient of 2 mm of mercury. Right ventricular systolic pressure is 30 mm of mercury. Measurements: Chambers Valvular Assessment AV/MV Valvular Assessment TV/PV Normal Normal Normal Name Value Range Name Value Range Name Value Range LVEF (BP): 62 % (>=55 %) AV Vmax: 0.71 m/s (1 m/s-1.7 TR Vmax: 2.50 mm/s ( - ) RVDd(2D): 3.3 cm (1.9 cm-3.8 m/s) TR PGmax: 25 mmHg ( - ) cmmm) AV maxP mmHg ( - ) syst. PAP: 30 mmHg ( - ) LVOT Vmax: 0.64 m/s (0.7 m/s-1.1 m/s) MV E Vmax: 1.06 m/s ( - ) MV A Vmax: 0.84 m/s ( - ) MV E/A: 1.26 ( - ) MV meanP mmHg ( - ) Continued Measurements: Chambers Valvular Assessment AV/MV Valvular Assessment TV/PV Name Value Name Value Name Value LADs Lon.1 cm MV VTI: 18.70 cm CVP (est.): 5 mmHg LA Area: 19.0 cm2 LA Volume: 56 ml LA Volume Index: 27.9 ml/m2 Patient: SENIA MCPHERSON Study Date: 04/28/2018 Page 1 of 2 08:45 AM Findings: Left Ventricle: Normal size left ventricle. No LV hypertrophy. Normal global systolic LV function. EF is 62 %. There is paradoxic septal motion suggestive of bundle branch block, paced cardiac rhythm, or prior cardiac surgery. Unable to assess diastolic dysfunction. Right Ventricle: Normal size right ventricle. Normal RV function. Left Atrium: The left atrium is normal in size. Right Atrium: The right atrium is normal in size. Mitral Valve: The mitral valve leaflets appear redundant. An annuloplasty ring is noted in the mitral valve position. Trivial mitral regurgitation noted. Mean gradient across the valve 2mmHg. Aortic Valve: The aortic valve is normal in appearance and function. There is no aortic valve regurgitation. No aortic valve stenosis is present. Tricuspid Valve: The tricuspid valve appears normal. Mild tricuspid regurgitation is present. Right ventricular systolic pressure measures 30mmHg. The pulmonary artery pressure is normal. Pulmonic Valve: Pulmonary valve not well visualized. Pericardium: No pericardial effusion. There is a pleural effusion present. Exam Comments: No parasternal window. (No Signature Object) Patient: SENIA MCPHERSON Study Date: 04/28/2018 Page 2 of 2 08:45 AM [id number]
[2018-04-29] MEDS: NS 1,000 ML IV SCH (02:23)
[2018-04-29] MEDS: traMADol 50 MG TAB PO PRN ×4 (05:58→21:13)
[2018-04-29 06:36] LABS: INR 2.25 (0.83-1.16); PROTIME(PATIENT) 24.9 SEC (12.0-15.0)
--- NOTE | 2018-04-29 07:50 | SOAPPROG ---
SOAP Progress Note Assessment/Plan: POD #3: MV repair with #38 Physio annuloplasty ring, bilateral pulmonary vein ablation, AtriClip left atrial appendage Severe symptomatic MR s/p MV repair with annuloplasty ring - CTs removed this AM - Coumadin for annuloplasty thromboprophylaxis, INR goal 2-3, duration 3 months (no Coumadin today as INR elevated) - Secondary prevention with beta-charmaine as tolerated PVCs, left atrial dilation s/p PV ablation with exclusion of LUNA - Beta-charmaine for AF prophylaxis as tolerated Non-obstructive CAD - Ramus bypass deferred - Future mgmt as per cardiology Acute blood loss anemia, thrombocytopenia - Stable without the need for blood product transfusions - Platelets higher today DVT prophylaxis - Coumadin/SCDs Subjective: Pt feels well. Slight light-headedness when SBP has been below 90. Denies SOB. Appetite slowly coming back. Objective: Vital Signs Temp Pulse Resp BP Pulse Ox 36.8 C 79 14 92/59 L 93 04/29/18 04:00 04/29/18 04:00 04/29/18 04:00 04/29/18 06:10 04/29/18 04:00 Laboratory Results 04/29/18 05:50 04/29/18 05:50 04/28/18 04/29/18 04/30/18 05:59 05:59 05:59 Intake Total 1950 5107 Output Total 688 795 Balance 1262 4312 PT 24.9 SEC (12.0-15.0) H 04/29/18 05:50 INR 2.25 (0.83-1.16) H 04/29/18 05:50 Physical Exam - Physical Exam General Appearance: WD/WN, alert, no apparent distress EENT: No scleral icterus (R), No scleral icterus (L) Neck: normal inspection Respiratory: No respiratory distress Cardiac/Chest: regular rate, rhythm Abdomen: non-tender, soft, No distended Skin: normal color, warm/dry Extremities: No pedal edema Neuro/Psych: no motor/sensory deficits, alert, normal mood/affect, oriented x 3 ICD10 Worksheet Patient Problems: Problems Problem Status Onset Acute blood loss anemia Acute Frequent PVCs Acute Mitral regurgitation Acute S/P mitral valve repair Acute Status post circumferential ablation of pulmonary vein Acute
[2018-04-29] MEDS: ASPIRIN 81 MG CHEWABLE TAB PO SCH (09:14)
[2018-04-29] MEDS: ESCITALOPRAM OXALATE 10 MG TAB PO SCH (09:14)
[2018-04-29] MEDS: SENNOSIDES/DOCUSATE SODIUM TAB PO SCH ×2 (09:14→21:10)
[2018-04-29] MEDS: PANTOPRAZOLE SODIUM 40 MG TAB PO SCH (09:14)
[2018-04-29] MEDS ORDERED: FUROSEMIDE 40 MG/4 ML VIAL IVP ONE (10:08)
[2018-04-29] MEDS: AMIODARONE HCL 200 MG TAB PO SCH ×2 (11:18→21:11)
[2018-04-30 04:24] LABS: INR 1.7 (0.83-1.16); PROTIME(PATIENT) 20.1 SEC (12.0-15.0)
[2018-04-30] MEDS: traMADol 50 MG TAB PO PRN ×3 (06:47→22:07)
--- NOTE | 2018-04-30 07:38 | SOAPPROG ---
SOAP Progress Note Assessment/Plan: POD #4: MV repair with #38 Physio annuloplasty ring, bilateral pulmonary vein ablation, AtriClip left atrial appendage Severe symptomatic MR s/p MV repair with annuloplasty ring - Coumadin for annuloplasty thromboprophylaxis, INR goal 2-3, duration 3 months - Secondary prevention with beta-charmaine as tolerated PVCs, left atrial dilation s/p PV ablation with exclusion of LUNA - Beta-charmaine for AF prophylaxis as tolerated - Continue amiodarone Non-obstructive CAD - Ramus bypass deferred - Future mgmt as per cardiology Acute blood loss anemia, thrombocytopenia - Stable without the need for blood product transfusions - Platelets > 100 DVT prophylaxis - Coumadin/SCDs Subjective: Slight light-headedness when standing from sitting. Denies pain/SOB. Objective: Vital Signs Temp Pulse Resp BP Pulse Ox 36.7 C 72 20 88/59 L 92 04/30/18 04:00 04/30/18 04:00 04/30/18 04:00 04/30/18 04:00 04/30/18 04:00 Laboratory Results 04/29/18 05:50 04/30/18 04:02 04/29/18 04/30/18 05/01/18 05:59 05:59 05:59 Intake Total 5107 1050 Output Total 795 880 80 Balance 4312 170 -80 PT 20.1 SEC (12.0-15.0) H 04/30/18 04:02 INR 1.70 (0.83-1.16) H 04/30/18 04:02 Physical Exam - Physical Exam General Appearance: WD/WN, alert, no apparent distress EENT: No scleral icterus (R), No scleral icterus (L) Neck: normal inspection Respiratory: No respiratory distress Cardiac/Chest: regular rate, rhythm Abdomen: non-tender, soft, No distended Skin: normal color, warm/dry Extremities: No pedal edema Neuro/Psych: no motor/sensory deficits, alert, normal mood/affect, oriented x 3 ICD10 Worksheet Patient Problems: Problems Problem Status Onset Acute blood loss anemia Acute Frequent PVCs Acute Mitral regurgitation Acute S/P mitral valve repair Acute Status post circumferential ablation of pulmonary vein Acute
[2018-04-30] MEDS ORDERED: FUROSEMIDE 40 MG/4 ML VIAL IVP ONE ×2 (08:18→12:00)
[2018-04-30] MEDS ORDERED: POTASSIUM CL 20 MEQ TAB PO ONE (08:18)
[2018-04-30] MEDS: SENNOSIDES/DOCUSATE SODIUM TAB PO SCH ×2 (09:50→22:06)
[2018-04-30] MEDS: ASPIRIN 81 MG CHEWABLE TAB PO SCH (09:51)
[2018-04-30] MEDS: ESCITALOPRAM OXALATE 10 MG TAB PO SCH (09:51)
[2018-04-30] MEDS: PANTOPRAZOLE SODIUM 40 MG TAB PO SCH (09:51)
[2018-04-30] MEDS: AMIODARONE HCL 200 MG TAB PO SCH ×2 (09:51→22:06)
[2018-04-30] MEDS ORDERED: WARFARIN SODIUM 2.5 MG TAB PO ONE (16:00)
--- NOTE | 2018-04-30 16:31 | ASMTCMCOM ---
CM Note CM Note Notes: Reviewed chart regarding discharge plan of care, pt's progress. Pt is POD #4 s/p MV repair. PT/OT continue to recommend home with four wheel walker and outpt cardiac rehab. Anticipate pt will likely discharge home independently when stable. CM will continue to follow for any potential needs. Date Signed: 04/30/2018 04:30 PM Electronically Signed By:Maryellen Lemon RN
[2018-05-01 04:57] LABS: INR 1.82 (0.83-1.16); PROTIME(PATIENT) 21.2 SEC (12.0-15.0)
[2018-05-01] MEDS: traMADol 50 MG TAB PO PRN ×2 (05:59→20:25)
--- NOTE | 2018-05-01 07:34 | SOAPPROG ---
SOAP Progress Note Assessment/Plan: Assessment: POD#5 MV annuloplasty with #38 Physio ring, bilateral RF pulmonary vein isolation, prophylactic AtriClip left atrial appendage Severe symptomatic MR s/p MV repair with ring annuloplasty - Thromboprophylaxis with Coumadin, INR goal 2-3, duration 3 months PVCs, left atrial dilation s/p PVI with exclusion of LUNA - Min postop ectopy. - AF prophylaxis with amiodarone. Adjunctive beta-charmaine as tolerated. Non-obstructive CAD - Ramus bypass deferred. Surveillance per cards. - Secondary prevention with ASA, BB and statin. Acute expected blood loss anemia with thrombocytopenia - Stable without the need for blood product transfusions - Platelet rebound evident - DVT prophylaxis w Coumadin/SCDs Plan: Cont IV diuresis. Cont amio 200 mg BID. Start Lipitor 10 mg daily. Coumadin 2.5 mg today. Inc activity as tolerated. Wean O2. Dispo - Home tomorrow without services 05/01/18 07:31 Subjective: Carrying "extra weight in my hips," but better every day. Light activity well tolerated. Satisfactory analgesia. Awaiting BM. Objective: Vital Signs Temp Pulse Resp BP Pulse Ox 36.4 C 81 17 99/67 L 97 05/01/18 04:38 05/01/18 04:38 05/01/18 04:38 05/01/18 04:38 05/01/18 04:38 Laboratory Results 04/29/18 05:50 04/30/18 04:02 04/30/18 05/01/18 05/02/18 05:59 05:59 05:59 Intake Total 1050 1000 Output Total 880 805 Balance 170 195 PT 21.2 SEC (12.0-15.0) H 05/01/18 04:35 INR 1.82 (0.83-1.16) H 05/01/18 04:35 Holding SR. Insufficient BP for BB. Min suppl O2 req. INR near therapeutic. - Pending Discharge Pending Discharge Within 24 Hours: Yes Pending Discharge Date: 05/02/18 Pending Discharge Time: 11:00 Physical Exam - Physical Exam General Appearance: alert, no apparent distress Respiratory: lungs clear Cardiac/Chest: regular rate, rhythm, other (Sternum grossly stable. Sternotomy and CT sites CDI) Abdomen: non-tender, soft Skin: warm/dry Extremities: swelling (trace dependent) ICD10 Worksheet Patient Problems: Problems Problem Status Onset Acute blood loss anemia Acute Frequent PVCs Acute Mitral regurgitation Acute S/P mitral valve repair Acute Status post circumferential ablation of pulmonary vein Acute
[2018-05-01] MEDS: PANTOPRAZOLE SODIUM 40 MG TAB PO SCH (09:12)
[2018-05-01] MEDS: ATORVASTATIN CALCIUM 10 MG TAB PO SCH (09:12)
[2018-05-01] MEDS: MULTIVITAMINS 1 EACH TAB PO SCH (09:12)
[2018-05-01] MEDS: AMIODARONE HCL 200 MG TAB PO SCH ×2 (09:12→20:25)
[2018-05-01] MEDS: ASPIRIN 81 MG CHEWABLE TAB PO SCH (09:12)
[2018-05-01] MEDS: POTASSIUM CL 20 MEQ TAB PO SCH ×2 (09:12→20:25)
[2018-05-01] MEDS: ESCITALOPRAM OXALATE 10 MG TAB PO SCH (09:12)
[2018-05-01] MEDS: SENNOSIDES/DOCUSATE SODIUM TAB PO SCH (09:12)
[2018-05-01] MEDS: FUROSEMIDE 40 MG/4 ML VIAL IVP SCH ×2 (09:12→15:53)
[2018-05-01] MEDS ORDERED: WARFARIN SODIUM 2.5 MG TAB PO ONE (16:00)
[2018-05-01] MEDS ORDERED: SENNOSIDES/DOCUSATE SODIUM TAB PO PRN (21:00)
[2018-05-02] MEDS: traMADol 50 MG TAB PO PRN (04:19)
[2018-05-02 06:51] LABS: INR 3.23 (0.83-1.16); PROTIME(PATIENT) 32.8 SEC (12.0-15.0)
--- NOTE | 2018-05-02 07:30 | SOAPPROG ---
SOAP Progress Note Assessment/Plan: Assessment: POD#6 MV annuloplasty with #38 Physio ring, bilateral RF pulmonary vein isolation, prophylactic AtriClip left atrial appendage Severe symptomatic MR s/p MV repair with ring annuloplasty - Thromboprophylaxis with Coumadin, INR goal 2-3, duration 3 months PVCs, left atrial dilation s/p PVI with exclusion of LUNA - Min postop ectopy. - AF prophylaxis with amiodarone. Adjunctive beta-charmaine as tolerated. Non-obstructive CAD - Ramus bypass deferred. Surveillance per cards. - Secondary prevention with ASA, BB and statin. Acute expected blood loss anemia with thrombocytopenia - Stable without the need for blood product transfusions - Platelet rebound evident - DVT prophylaxis w Coumadin/SCDs Plan: Ok for home. Switch to oral lasix. No coumadin today. Instructions re diet, meds, activity, wound care and f/u to be reviewed in presence of this afternoon. 05/02/18 07:29 Subjective: Feels well. +BM. Ready for home. Objective: Vital Signs Temp Pulse Resp BP Pulse Ox 36.6 C 72 16 95/62 L 2 L 05/02/18 07:15 05/02/18 07:15 05/02/18 07:15 05/02/18 07:15 05/02/18 07:15 Laboratory Results 05/02/18 04:40 05/02/18 04:40 05/01/18 05/02/18 05/03/18 05:59 05:59 05:59 Intake Total 1000 1420 Output Total 805 1950 Balance 195 -530 PT 32.8 SEC (12.0-15.0) H 05/02/18 04:40 INR 3.23 (0.83-1.16) H 05/02/18 04:40 Holding SR. SBPs remain too low for BB. Borderline suppl O2 req. Improving fluid balance. Labs ok. Physical Exam - Physical Exam General Appearance: alert, no apparent distress Respiratory: lungs clear (grossly) Cardiac/Chest: regular rate, rhythm, other (Sternotomy and CT sites CDI) Abdomen: non-tender, soft Skin: warm/dry Extremities: swelling (trace dependent) ICD10 Worksheet Patient Problems: Problems Problem Status Onset Acute blood loss anemia Acute Frequent PVCs Acute Mitral regurgitation Acute S/P mitral valve repair Acute Status post circumferential ablation of pulmonary vein Acute
[2018-05-02] MEDS: ESCITALOPRAM OXALATE 10 MG TAB PO SCH (08:24)
[2018-05-02] MEDS: ASPIRIN 81 MG CHEWABLE TAB PO SCH (08:24)
[2018-05-02] MEDS: FUROSEMIDE 40 MG/4 ML VIAL IVP SCH (08:25)
[2018-05-02] MEDS: ATORVASTATIN CALCIUM 10 MG TAB PO SCH (08:25)
[2018-05-02] MEDS: MULTIVITAMINS 1 EACH TAB PO SCH (08:25)
[2018-05-02] MEDS: PANTOPRAZOLE SODIUM 40 MG TAB PO SCH (08:25)
[2018-05-02] MEDS: AMIODARONE HCL 200 MG TAB PO SCH (08:25)
--- NOTE | 2018-05-02 08:44 | PDHOMEO2F ---
Home Oxygen Face to Face Home Orders: I certify that a physician or a nurse practitioner or physician's curriculum assistant principal has had a [id number] encounter with this patient on the date of this order due to the diagnosis listed, which relates to the primary reason the patient requires home oxygen. Alternative treatments have been tried, or considered, and deemed ineffective. It is anticipated that supplemental oxygen will result in improvement with treatment. Home oxygen qualifying diagnosis: dilated cardiomyopathy SpO2 on room air (%): 86 Frequency of home oxygen needed: continuous Home oxygen liters per minute: 1 Home oxygen delivery device: nasal cannula Concentrator: Yes E-tanks for mobility and back up: Yes If ordering portable O2, is the patient mobile in the home?: Yes I certify that, based on these findings, the home oxygen is medically necessary for this patient for the following length of time. Length of time home oxygen needed: 1 month Home Oxygen Comment: SpO2 77% when asleep
[2018-05-02] MEDS: POTASSIUM CL 20 MEQ TAB PO SCH (08:53)
--- NOTE | 2018-05-02 09:35 | PDDCSUM ---
Discharge Summary Discharge Summary: DATE OF ADMISSION: 04/26/18 DATE OF DISCHARGE: 05/02/18 DISPOSITION: Home, self-care PRINCIPAL ADMISSION DIAGNOSES: 1. Severe mitral valve regurgitation 2. Dilated valvular cardiomyopathy 3. Palpitations PRINCIPAL DISCHARGE DIAGNOSES: 1. Status post mitral valve repair 2. Status post bilateral pulmonary vein isolation 3. Status post prophylactic exclusion of the left atrial appendage 4. Acute expected blood loss anemia with thrombocytopenia HISTORY OF PRESENT ILLNESS: 62 yo male with progressive myxomatous MR, left atrial and ventricular dilatation, declining exercise tolerance and bothersome PACs/PVCs admitted for elective mitral valve repair and pulmonary vein ablation. OTHER PERTINENT PAST MEDICAL HISTORY: nonobstructive CAD, anxiety, BPH, HTN MEDICATIONS ON ADMISSION: ASA 81 mg daily, MVI daily, Lexapro 10 mg daily, Revatio 20 to 100 mg daily prn ALLERGIES/SENSITIVITIES: NKDA CONSULTANTS: none PROCEDURES/IMAGIN/5 (Tova): Mitral valve annuloplasty with a 30 mm Marquez Physio ring. Bilateral pulmonary vein isolation with bipolar radiofrequency ablation. Prophylactic AtriClip exclusion of the left atrial appendage. 04/28 (Pramod): Transthoracic echocardiogram: Nl BiV systolic fx, LVEF 62%, nl atrial size, trivial MR, mild TR ABBREVIATED HOSPITAL COURSE BY ACTIVE PROBLEM LIST: 1. Symptomatic severe MR - Amenable to ring annuloplasty. Thromboprophylaxis with Coumadin, INR goal 2-3, duration 3 months. 2. Valvular cardiomyopathy - No prolonged vasoactive support. Significant fluid overload well tolerated. Active diuresis in progress. 3. Symptomatic dysrhythmias - Mitigated with PVI and exclusion of the left atrial appendage. AF prophylaxis with amiodarone. Insufficient BP for adjunctive beta-blockade. 4. Nonobstructive CAD - Bypass grafting deferred. Surveillance per cards. Secondary prevention with ASA, BB and statin. 5. Acute expected blood loss anemia with thrombocytopenia - Stable. No transfusions required. Platelet rebound evident. DISCHARGE CLINICAL INFORMATION: Sternum grossly stable. Sternotomy CDI, sutured, +Dermabond. HR 70s. SBP 90s. SpO2 86% RA, correcting to > 90% on 1 lpm O2. Wt 10 kg above admission at 72.6 kilos. WBC 7, Hgb 9.6, HCT 29.3, Plt 214, Na 130, K 4, Cr 1.0 Coumadin flowsheet: Date INR mg 04/27 1.21 5 04/28 1.8 0 04/29 2.25 0 04/30 1.7 2.5 05/01 1.82 2.5 05/02 3.23 0 DISCHARGE MEDICATIONS: As on admission with the following adjustments: 1. Hold Revatio NEW prescriptions: 1. Amiodarone 200 mg BID thru 05/13, then 200 mg daily x 2 weeks 2. Lasix 40 mg BID until back to baseline weight, then reduce to 40 mg daily 3. Klor-Con 20 meq with each 40 mg Lasix tablet 4. Lipitor 10 mg daily 5. Coumadin 1 mg daily or as directed by INR/anticoagulation clinic 6. Tramadol 50 mg 1/2 to 2 tabs q 6hrs prn incisional discomfort 7. Oxygen @ 1 lpm continuously or as directed by SpO2 FOLLOW UP APPOINTMENTS: 1. CV surgery: with Dr Bernardo at [facility] on 05/09 at 10:45 am. 2. Cardiology: with Dr Martinez at [facility] within 4-6 weeks. Appointment to be established during surgical visit. FOLLOW UP TESTIN. INR at [facility] on 05/04 as directed. 2. CXR prior to surgical appointment.
[2018-05-02 12:41] VITALS: BP 93/58
--- NOTE | 2018-05-02 14:25 | ASDISCHSUM ---
Discharge Information Plan Status:Home with No Needs Medically Cleared to Leave:05/02/2018 Discharge Date:05/02/2018 CM D/C Disposition:Home, Routine, Self-Care ADT D/C Disposition:Home, Routine, Self-Care Projected Discharge Date:05/02/2018 Transportation at D/C:Family Discharge Delay Reason: Follow-Up Date:05/02/2018 Discharge Slot: Final Diagnosis: Placement Information Patient Contact Information Contact Name:MIKAELA Relationship: Address:[address] City:[place] Alternate Phone: [facility]/Zip Code:[place] [address] Email: Financial Information Financial Class:HMO and PPO Plans Primary Plan Desc:[facility] Primary Plan Number:[id number] Secondary Plan Desc: Secondary Plan Number: Assessment Information LACE LACE Length of stay for Answers: 4-6 days current admission Acuity / Level of Answers: Yes Care: Did the patient have an inpatient admission? Comorbidities - select Answers: Coronary Artery Disease all that apply Other Notes: MR; PVCs # of Emergency department Answers: 1-2 visits in the last 6 months Social determinants Answers: Mental health diagnosis (anxiety, depression, pers onality disorders, etc.) Score: 14 Date Signed: 05/02/2018 02:20 PM Electronically Signed By:Edel Parker RN [facility] CM Progress Note CM Note CM Note Notes: Chart reviewed. 62 year old male s/p MV repair. Likely will dc with outpatient cardiac rehab. CM to follow. Plan: TBD Date Signed: 04/27/2018 11:34 AM Electronically Signed By:Payton Betancur RN [facility] CM Progress Note CM Note CM Note Notes: Reviewed chart regarding discharge plan of care, pt's progress. Pt is POD #4 s/p MV repair. PT/OT continue to recommend home with four wheel walker and outpt cardiac rehab. Anticipate pt will likely discharge home independently when stable. CM will continue to follow for any potential needs. Date Signed: 04/30/2018 04:30 PM Electronically Signed By:Maryellen Lemon RN Case Management Discharge Plan Note Case Management Discharge Discharge Order Complete? Answers: Yes Patient to Obtain Answers: via Family Medications Transportation Arranged Answers: Family/Friends Discharge Comments Notes: 05/02/2018 Case Management Note Pt discharged home with family support and cardiac rehab. Date Signed: 05/02/2018 02:22 PM Electronically Signed By:Edel Parker RN Intervention Information
[2018-05-02] MEDS ORDERED: POTASSIUM CL 20 MEQ TAB PO SCH (15:00)
[2018-05-02] MEDS ORDERED: FUROSEMIDE 40 MG TAB PO SCH (15:00)
== END 2018-05-02 16:02 | disposition home or self-care (01) | DRG 220 ==
LOC: F3N 07:07 → F2N 10:33 → F2W 04-27 17:14
PROVIDERS: ADMIT Thoracic Surgery (Cardiothoracic Vascular Surgery); ATTEND Thoracic Surgery (Cardiothoracic Vascular Surgery)
DX: I34.0 Nonrheumatic mitral (valve) insufficiency (principal); I42.0 Dilated cardiomyopathy; D62 Acute posthemorrhagic anemia; R00.2 Palpitations; D69.6 Thrombocytopenia, unspecified; I25.10 Atherosclerotic heart disease of native coronary artery without angina pectoris; F41.9 Anxiety disorder, unspecified; N40.0 Benign prostatic hyperplasia without lower urinary tract symptoms; I10 Essential (primary) hypertension; Z23 Encounter for immunization
CPT/HCPCS: 82435-PO; 82565-PO; 82947-PO; 84132-PO; 84295-PO; 84520-PO; 85014-PO; 97110-GP; 97116-GP; 97162-GP; 97166-GO; 97530-GP; 97535-GO; G0008; J0282; J0690; J1170; J1644; J1815; J1885; J1940; J2001; J2150; J2250; J2270; J2370; J2405; J2440; J2704; J2720; J2765; J3010; J3475; J7060; P9041

== ENCOUNTER → 2018-05-03 | Outpatient (CLI) | payer OTHER | LOC: FIMAGING 13:28 → EDSTATUS 13:29 | PROVIDERS: ATTEND Thoracic Surgery (Cardiothoracic Vascular Surgery) | DX: Z09 Encounter for follow-up examination after completed treatment for conditions other than malignant neoplasm (principal); J90 Pleural effusion, not elsewhere classified; J98.11 Atelectasis; Z98.890 Other specified postprocedural states; Z86.79 Personal history of other diseases of the circulatory system ==

== ENCOUNTER → 2018-05-05 | Outpatient (CLI) | payer OTHER ==
[~2018-05-05] MED LIST changes: -ALBUMIN 5% 250 ML BOTTLE IV ONE; -AMIODARONE HCL 150 MG/3 ML VIAL ONE; -CALCIUM CHLORIDE 1 GM/10 ML INJ ONE; -HEPARIN 10,000 UNIT/10 ML MDV (1,000 UNIT/ML) ONE; +LIDOCAINE 1% 300 MG/30 ML SDV ONE; -LIDOCAINE 2% 100 MG/5 ML SYR ONE; -MAGNESIUM SULFATE 1 GM/2 ML VIAL ONE; -NA BICARBONATE 50 MEQ/50 ML VIAL ONE; -NITROGLYCERIN/D5W 50 MG/250 ML BOTTLE IV ONE; -PROTAMINE SULFATE 50 MG/5 ML VIAL IVP ONE
== END ==
LOC: FIMAGING 09:29
PROVIDERS: ATTEND Thoracic Surgery (Cardiothoracic Vascular Surgery)
PROC: 0W9B3ZZ Drainage of Left Pleural Cavity, Percutaneous Approach (ICD-10-PCS; principal; 2018-05-05)
DX: J90 Pleural effusion, not elsewhere classified (principal)

== ENCOUNTER → 2018-05-09 | Outpatient (CLI) | payer OTHER | LOC: FIMAGING 12:43 | PROVIDERS: ATTEND Thoracic Surgery (Cardiothoracic Vascular Surgery) | DX: J98.11 Atelectasis (principal); Z95.2 Presence of prosthetic heart valve ==

== ENCOUNTER → 2018-05-23 | Outpatient (CLI) | payer OTHER | LOC: FIMAGING 09:22 | PROVIDERS: ATTEND Thoracic Surgery (Cardiothoracic Vascular Surgery) | DX: Z09 Encounter for follow-up examination after completed treatment for conditions other than malignant neoplasm (principal); Z86.79 Personal history of other diseases of the circulatory system; Z95.2 Presence of prosthetic heart valve ==